=== PATIENT | male | born 1970 | race Caucasian/White ===

== ENCOUNTER → 2019-06-09 | Outpatient (REF) | payer BC ==
[2019-06-09 19:05] LABS: APPEARANCE, URINE CLEAR (CLEAR); BACTERIA, URINE AUTO NEGATIVE (NEGATIVE); BILIRUBIN, URINE AUTO NEGATIVE (NEGATIVE); BLOOD, URINE BLOOD NEGATIVE (NEGATIVE); COLOR, URINE YELLOW (YELLOW); GLUCOSE, URINE (UA) AUTO NEGATIVE (NEGATIVE); KETONE, URINE AUTO NEGATIVE (NEGATIVE); LEUKOCYTE ESTERASE, URINE AUTO NEGATIVE (NEGATIVE); NITRITE, URINE AUTO NEGATIVE (NEGATIVE); PROTEIN, URINE AUTO NEGATIVE (NEGATIVE); RBC, URINE AUTO 0 /HPF (0-3); SPECIFIC GRAVITY URINE AUTO 1.012 (1.002-1.035); SQUAMOUS EPITHELIAL CELL UR AU 0 /HPF (0-6); UROBILINOGEN, URINE AUTO 0.2 mg/dL (0.0-2.0); WBC, URINE AUTO 1 /HPF (0-3)
== END ==
LOC: M SMT 17:09
PROVIDERS: ATTEND Nurse Practitioner Family
DX: N40.1 Benign prostatic hyperplasia with lower urinary tract symptoms (principal)

== ENCOUNTER 2020-11-07 06:04 | Day surgery (SDC) | payer BC ==
[~2020-11-07] VITALS: Ht 175.3 cm; Wt 103.9 kg
[~2020-11-07 06:04] MED LIST: ALBU8.5H; AMLO1TAB25 PO; ATOR40TA75 PO; ECOT81TA5 PO; HYDR-3490 PO; LIDOCAINE 1% MDV 20ML VIAL SQ PRN; LISI30TA4 PO; OMEP-221 PO; SYMB16INH; TREL1AER
[2020-11-07] MEDS ORDERED: LR 1,000 ML IV ONE (06:10)
[2020-11-07] MEDS ORDERED: LIDOCAINE 4% INJ 5ML AMP INH ONE (06:10)
[2020-11-07] MEDS ORDERED: ALBUTEROL SULFATE 2.5 MG/0.5 ML INH NEB SOLN INH ONE (06:10)
[2020-11-07] MEDS ORDERED: MIDAZOLAM INJ 2MG/2ML VIAL (J2250 PER 1MG) As Ordered ONE (06:42)
[2020-11-07] MEDS ORDERED: propofoL 500 MG/50 ML VIAL As Ordered ONE (06:43)
[2020-11-07] MEDS ORDERED: LIDOCAINE 2% 100MG/5ML SDV (FOR ANES.) As Ordered ONE (06:44)
[2020-11-07] MEDS ORDERED: ROCURONIUM BROMIDE 50 MG/5 ML VIAL As Ordered ONE (06:44)
[2020-11-07] MEDS ORDERED: dexameTHASONE 4 MG/ML 1ML VIAL (J1100 PER 1MG) As Ordered ONE (06:54)
[2020-11-07] MEDS ORDERED: fentaNYL 100 MCG/2 ML INJECTION (J3010) As Ordered ONE (06:54)
[2020-11-07] MEDS ORDERED: ONDANSETRON 4MG/2ML VIAL As Ordered ONE (06:54)
[2020-11-07] MEDS ORDERED: propofoL 200 MG/20 ML VIAL As Ordered ONE ×2 (06:55→09:40)
[2020-11-07] MEDS ORDERED: SUGAMMADEX SODIUM 500 MG/5 ML VIAL (BRIDION) As Ordered ONE (07:06)
[2020-11-07] MEDS ORDERED: EPINEPHrine 1MG/10ML SYRINGE 1.5IN As Ordered ONE (07:11)
[2020-11-07] MEDS ORDERED: THROMBIN SOLN 5,000 UNITS VIAL As Ordered ONE (07:11)
[2020-11-07] MEDS ORDERED: CETACAINE SPRAY 5GM As Ordered ONE (07:11)
[2020-11-07] MEDS ORDERED: LIDOCAINE VISCOUS 2% SOLN 15ML UDC As Ordered ONE (07:11)
[2020-11-07] MEDS ORDERED: LIDOCAINE 1% MDV 20ML VIAL As Ordered ONE (07:11)
--- NOTE | 2020-11-07 08:49 | REP ---
INDICATION: POST OP IN PACU/BRONCHOSCOPY COMPARISON: None. TECHNIQUE: Portable AP view of the chest FINDINGS: Visualized mediastinum and cardiac silhouette are within normal limits. Left lower lobe opacity with blunting to the costophrenic angle suggests airspace disease and small pleural effusion. Correlation is recommended as no prior examinations are available for comparison. No pneumothorax. IMPRESSION: Opacity at the left base with blunting to the costophrenic angle may represent area of atelectasis and small pleural effusion. No prior examinations are available for comparison. <Electronically signed by Severino Mason > 11/07/20 [id number]
[2020-11-07] MEDS ORDERED: fentaNYL 100 MCG/2 ML INJECTION (J3010) IV PRN (09:05)
[2020-11-07] MEDS ORDERED: LR 1,000 ML IV SCH (09:05)
[2020-11-07] MEDS ORDERED: ONDANSETRON 4MG/2ML VIAL IV PRN (09:05)
[2020-11-07] MEDS ORDERED: oxyCODONE 5MG TAB PO PRN (09:05)
--- NOTE | 2020-11-07 09:10 | RO ---
OPERATIVE NOTE DATE OF OPERATION: 11/07/2020 PREOPERATIVE DIAGNOSES: 1. Abnormal chest CT. 2. Mediastinal lymphadenopathy. POSTOPERATIVE DIAGNOSES: 1. Abnormal chest CT. 2. Mediastinal lymphadenopathy. FINDINGS: Mucous in airway, smoker's airway. PROCEDURE: Bronchoscopy with endobronchial ultrasound. PROCEDURALIST: Job Conley D.O. CARDIAC SURGEON: None. ANESTHESIA: General. ESTIMATED BLOOD LOSS: Less than 5 mL. SPECIMENS OBTAINED: 1. Bronchoalveolar lavage (BAL) right middle lobe. 2. Fine needle aspiration left pretracheal mass. COMPLICATIONS: None observed. DESCRIPTION OF PROCEDURE: The patient was brought back to the OR after informed consent was reviewed. Anesthesia performed intubation and the case was handed over to me. A time-out was then performed with two patient identifiers, identify correct site and correct procedure and correlating name and date of with imaging. Cetacaine spray was then used to anesthetize the airway and provide lubrication for the 1T190 bronchoscope, which was then inserted into the trachea. The trachea was fairly midline and raul was splayed. There were minimal amounts of thick purulent mucous, opaque, mostly in the left lower lobe with some on the right. All airways were suctioned, and I then performed a BAL of the right middle lobe. After all suctioning was performed, I inspected the airways. The right mainstem bronchus was normal. The right upper lobe had anatomic variation with two apical segments and two lower segments, one anterior, and one posterior. RB5 through 10 was normal. The takeoff of the left upper lobe was [place], but no endobronchial lesions in LB1 through 3. LB4 and 5 were patent. The remainder of the lower lobe segments 6 through 10 were without endobronchial lesion. Left main bronchus was normal except for some minimal amounts of mucous. After airway exam, the 1T190 bronchoscope was removed and the endobronchial linear scope was then inserted. I viewed the subcarinal area, which was not as remarkable as the left pretracheal. Left pretracheal area was then biopsied multiple times. No suspicion of lymphoproliferation to send for flow cytometry; therefore, did not provide a sample for RPMI, but did obtain adequate sampling for cell block for pathology. After adequate sampling was obtained, the bronchoscope was removed. There was some amount of blood in the airway and this was all suctioned. There were no signs of hemorrhage. Hemostasis assured. Bronchoscope was removed. No observed complications. Postprocedure chest x-ray is pending.
[2020-11-07 09:40] VITALS: BP 124/77
== END 2020-11-07 10:07 | disposition home or self-care (01) ==
LOC: M SDC 06:04
PROVIDERS: ATTEND Internal Medicine Pulmonary Disease
DX: R59.0 Localized enlarged lymph nodes (principal); R91.8 Other nonspecific abnormal finding of lung field; B95.4 Other streptococcus as the cause of diseases classified elsewhere; I10 Essential (primary) hypertension; E78.5 Hyperlipidemia, unspecified; K21.9 Gastro-esophageal reflux disease without esophagitis; K76.0 Fatty (change of) liver, not elsewhere classified; J44.9 Chronic obstructive pulmonary disease, unspecified; Z87.891 Personal history of nicotine dependence; Z79.899 Other long term (current) drug therapy
CPT/HCPCS: 31624; 31627; 31629; 71045; 87070; 87077; 87102; 87116; 87186; 87205; 87206; 88173; 88305; J1100; J2250; J2405; J3010

== ENCOUNTER → 2020-11-14 | Outpatient (REF) | payer BC ==
[~2020-11-14] MED LIST changes: -LIDOCAINE 1% MDV 20ML VIAL SQ PRN
[2020-11-14 17:47] LABS: BLOOD UREA NITROGEN 15 MG/DL (7-18); CREATININE FOR GFR 0.69 MG/DL (0.70-1.30); GLOMERULAR FILTRATION RATE > 60.0 (>56)
== END ==
LOC: M PLALAB 16:55 → M LAB REF 16:55
PROVIDERS: ATTEND Internal Medicine Pulmonary Disease
DX: R59.0 Localized enlarged lymph nodes (principal)

== ENCOUNTER → 2020-11-16 | Outpatient (CLI) | payer BC ==
[~2020-11-16] MED LIST changes: +ISOVUE-370 76% 100ML VIAL As Ordered ONE
--- NOTE | 2020-11-16 16:20 | REP ---
INDICATION: LOCALIZED ENLARGED LYMPH NODES COMPARISON: 10/03/2020 a contrast-enhanced examination from an outside institution and 08/17/2020 a noncontrast enhanced examination from the same outside institution. TECHNIQUE: Standard helical technique after the intravenous administration of 100 cc Isovue 370. FINDINGS: There is a 5.1 x 5 x 3.8 cm sized mixed enhancing mass in the aortic pulmonary window. The overall size of this mass has not changed significantly compared to the latest prior contrast-enhanced exam. There is no hilar adenopathy. There is left axillary adenopathy which is also unchanged. The imaged upper abdomen is unchanged. The imaged osseous structures are again seen to be within normal limits. Evaluation of the lung bishop shows a 6 mm size nodule in the right lower lobe. There is an additional 6 mm size nodule more inferior to that. There is a 5 mm size nodule in the superior right middle lobe. There is a curvilinear density in the inferior lingula likely representing subsegmental atelectatic change. All aforementioned parenchymal findings are unchanged from the 10/03/2020 exam. Tiny left apical pleural blebs are noted. IMPRESSION: 1. There is a large mediastinal mass as described above. This is consistent with neoplasm. 2. There is left axillary adenopathy. 3. Multiple pulmonary nodules as described above. According to the revised Fleischner society criteria a three-month follow-up CT of the chest is recommended for those nodules. 4. Other findings as described above. <Electronically signed by Darron Garcia > 11/16/20 [id number]
== END ==
LOC: M RAD 12:35
PROVIDERS: ATTEND Internal Medicine Pulmonary Disease
DX: J98.59 Other diseases of mediastinum, not elsewhere classified (principal); R59.0 Localized enlarged lymph nodes; R91.8 Other nonspecific abnormal finding of lung field
CPT/HCPCS: 71260; Q9967

== ENCOUNTER → 2020-12-14 | Outpatient (CLI) | payer BC ==
[~2020-12-14] MED LIST changes: -ISOVUE-370 76% 100ML VIAL As Ordered ONE
[2020-12-14 14:10] LABS: ABG BASE EXCESS 0.8 (-2.0-2.0); ABG HCO3 24.5 MEQ/L (22.0-26.0); ABG O2 SATURATION 95.5 % (95.0-99.0); ABG PARTIAL PRESSURE CO2 36.7 mmHg (35.0-45.0); ABG PARTIAL PRESSURE O2 78.6 mmHg (75.0-100.0); ABG STANDARD HCO3 25.1 MEQ/L (22.0-26.0); ABG TOTAL CO2 25.7 MEQ/L (22.0-29.0); ABG pH (ARTERIAL) 7.443 UNITS (7.350-7.450)
[2020-12-14 14:26] LABS: INR 0.91; PROTHROMBIN TIME 12.4 SECONDS (12.5-14.3)
[2020-12-14 14:27] LABS: HEMATOCRIT 43.8 % (42.0-52.0); HEMOGLOBIN 14.9 g/dl (13.5-17.5); MEAN CORPUSCULAR VOLUME 88.3 fl (80.0-96.0); PLATELET COUNT, AUTOMATED 272 10^3/uL (150-450); RED BLOOD COUNT 4.96 10^6/uL (4.30-6.10); WHITE BLOOD COUNT 7.2 10^3/uL (4.0-10.0)
[2020-12-14 14:31] LABS: BLOOD UREA NITROGEN 12 MG/DL (7-18); CALCIUM LEVEL 9.4 MG/DL (8.5-10.1); CARBON DIOXIDE LEVEL 30 MEQ/L (21-32); CHLORIDE LEVEL 104 MEQ/L (98-107); CREATININE FOR GFR 0.69 MG/DL (0.70-1.30); GLOMERULAR FILTRATION RATE > 60.0 (>56); GLUCOSE, FASTING 102 MG/DL (70-100); POTASSIUM SERUM 3.4 MEQ/L (3.5-5.1); SODIUM LEVEL 138 MEQ/L (136-145)
[2020-12-14 14:51] LABS: APPEARANCE, URINE CLEAR (CLEAR); BACTERIA, URINE AUTO NEGATIVE (NEGATIVE); BILIRUBIN, URINE AUTO NEGATIVE (NEGATIVE); BLOOD, URINE BLOOD NEGATIVE (NEGATIVE); COLOR, URINE STRAW (YELLOW); GLUCOSE, URINE (UA) AUTO NEGATIVE (NEGATIVE); KETONE, URINE AUTO NEGATIVE (NEGATIVE); LEUKOCYTE ESTERASE, URINE AUTO NEGATIVE (NEGATIVE); NITRITE, URINE AUTO NEGATIVE (NEGATIVE); PROTEIN, URINE AUTO NEGATIVE (NEGATIVE); RBC, URINE AUTO 0 /HPF (0-3); SPECIFIC GRAVITY URINE AUTO 1.005 (1.002-1.035); SQUAMOUS EPITHELIAL CELL UR AU 0 /HPF (0-6); UROBILINOGEN, URINE AUTO 0.2 mg/dL (0.0-2.0); WBC, URINE AUTO 0 /HPF (0-3)
--- NOTE | 2020-12-14 15:35 | REP ---
INDICATION: PRE OP. COMPARISON: 11/07/2020 a portable exam TECHNIQUE: Two views FINDINGS: Cardiomediastinal silhouette is within normal limits. The heart is not enlarged. The left lung is improved, however, a few curvilinear left basilar densities persist. The right lung is clear and unchanged. The CP angles are sharp. There is no change in the osseous structures. IMPRESSION: No evidence of acute cardiopulmonary disease. Improved left lung base as described above. Follow-up to complete resolution should be considered. <Electronically signed by Darron Garcia > 12/14/20 [id number]
--- NOTE | 2020-12-16 16:06 | ECGEPIP ---
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
== END ==
LOC: M ADMPAT 13:25
PROVIDERS: ATTEND Thoracic Surgery (Cardiothoracic Vascular Surgery)
DX: Z01.818 Encounter for other preprocedural examination (principal); R22.2 Localized swelling, mass and lump, trunk

== ENCOUNTER 2020-12-17 10:44 | Day surgery (SDC) | payer BC ==
[~2020-12-17] VITALS: Ht 175.3 cm; Wt 104.3 kg
[~2020-12-17 10:44] MED LIST changes: +LIDOCAINE 1% MDV 20ML VIAL SQ PRN; +LR 1,000 ML IV ONE; +MUPIROCIN 2% OINT 22 GM TUBE TOP ONE; +ceFAZolin SOD 2 GM in IV 1 EA IV ONE
[2020-12-17] MEDS ORDERED: ROCURONIUM BROMIDE 50 MG/5 ML VIAL As Ordered ONE ×2 (12:20→14:07)
[2020-12-17] MEDS ORDERED: LIDOCAINE 2% 100MG/5ML SDV (FOR ANES.) As Ordered ONE ×2 (12:20→16:01)
[2020-12-17] MEDS ORDERED: fentaNYL 100 MCG/2 ML INJECTION (J3010) As Ordered ONE ×2 (12:20→14:36)
[2020-12-17] MEDS ORDERED: MIDAZOLAM INJ 2MG/2ML VIAL (J2250 PER 1MG) As Ordered ONE (12:20)
[2020-12-17] MEDS ORDERED: propofoL 200 MG/20 ML VIAL As Ordered ONE ×2 (12:20→16:00)
[2020-12-17] MEDS ORDERED: CETACAINE SPRAY 5GM As Ordered ONE (13:20)
[2020-12-17] MEDS ORDERED: EPINEPHrine 1MG/10ML SYRINGE 1.5IN As Ordered ONE (13:20)
[2020-12-17] MEDS ORDERED: BUPIVACAINE LIPOSOME/PF 1.3% 20ML VIAL (13.3MG/ML)(EXPAREL)(C9290 PER1MG) As Ordered ONE (13:21)
[2020-12-17] MEDS ORDERED: THROMBIN SOLN 20,000 UNITS KIT As Ordered ONE (13:42)
[2020-12-17] MEDS ORDERED: dexameTHASONE 4 MG/ML 1ML VIAL (J1100 PER 1MG) As Ordered ONE (13:58)
[2020-12-17] MEDS ORDERED: ONDANSETRON 4MG/2ML VIAL As Ordered ONE (14:11)
[2020-12-17] MEDS ORDERED: ACETAMINOPHEN 1000MG 100ML IV BTL (OFIRMEV) (J0131 PER 10MG) As Ordered ONE (14:14)
[2020-12-17] MEDS ORDERED: KETOROLAC 30 MG/ML 1ML VIAL As Ordered ONE (16:40)
[2020-12-17] MEDS ORDERED: fentaNYL 100 MCG/2 ML INJECTION (J3010) IV PRN (16:50)
[2020-12-17] MEDS ORDERED: METOCLOPRAMIDE INJ 10MG/2ML VIAL (J2765 PER 1) IV PRN (16:50)
[2020-12-17] MEDS ORDERED: ONDANSETRON 4MG/2ML VIAL IV PRN (16:50)
[2020-12-17] MEDS ORDERED: LR 1,000 ML IV SCH (16:50)
[2020-12-17] MEDS ORDERED: PERCOCET 5MG/325MG TAB PO PRN ×2 (16:50)
[2020-12-17] MEDS ORDERED: KETOROLAC 30 MG/ML 1ML VIAL IV ONE (16:55)
--- NOTE | 2020-12-17 17:02 | REP ---
INDICATION: POST OP IN PACU/ BRONCHOSCOPY. COMPARISON: 12/14/2020 TECHNIQUE: Portable FINDINGS: The technique utilized in obtaining the radiograph has magnified the cardiac silhouette and attenuated the interstitial markings. The cardiomediastinal silhouette is essentially unchanged when the technical differences between the examinations are taken into consideration. There is a new asymmetric density in the left lower lobe. The lung bishop are hypoexpanded accentuating the finding. New curvilinear densities and slight right CP angle blunting is also noted. This represents a change. IMPRESSION: Likely bilateral lower lobe subsegmental atelectatic changes. Follow-up is suggested. <Electronically signed by Darron Garcia > 12/17/20 [id number]
[2020-12-17 18:25] VITALS: BP 124/72
--- NOTE | 2020-12-18 08:38 | RO ---
OPERATIVE NOTE DATE OF OPERATION: 12/17/2020 PREOPERATIVE DIAGNOSIS: Mediastinal lymphadenopathy/mass. POSTOPERATIVE DIAGNOSIS: Mediastinal lymphadenopathy/mass; metastatic carcinoma, unknown cell type at this point. PROCEDURE: Mediastinoscopy, bronchoscopy. SURGEON: Luis Ponce MD DOOR ASSEMBLER: ANESTHESIA: FINDINGS: The bronchoscopy revealed normal branching tracheobronchial tree. There was no extrinsic compression of the trachea and there were no endobronchial lesions. The mediastinoscopy reveals a mass, which is actually rather difficult to find as it was surrounded in fat. It was quite vascular and bled with every bite. Frozen section showed this could be a highly vascular metastatic adenocarcinoma. DESCRIPTION OF PROCEDURE: Under satisfactory general anesthesia and single-lumen tube endotracheal intubation, the bronchoscope was passed in the tracheobronchial tree. Each sub-segment and segment were thoroughly inspected and there were no endobronchial lesions. There was no extrinsic compression of the left or right main stem bronchi or the trachea. The patient was then prepped and draped in the usual sterile fashion, and a standard suprasternal notch incision was made. Incision was carried down through subcutaneous tissue and the strap muscles divided in the midline. Pretracheal fascia was entered. I could not feel the mass with my dissecting finger even all the way up to its hilt. The mediastinoscope was placed, and there in proceeded a long exploration to actually find the mass. I thought the mass was going to be quite evident but it was covered in fat. Upon aspirating the mass, there were areas where it was quite vascular thus confusing me with regard to its proximity to the great vessels. The CT scan did not show any proximity to any great vessels. I eventually started biopsying the mass and sent for frozen section which showed metastatic carcinoma tissue which was really quite vascular with large nests of vessels. This gave me a little more confidence to go back and biopsy the mass more extensively. There was one portion of the mass which bled quite vigorously in a steady stream and I eventually cauterized these by use of the biopsy forceps being used as a conduit for electrical cautery current. After achieving adequate hemostasis and packing the wound with Gelfoam and thrombin, the strap muscles were closed with running 3-0 Vicryl suture, subcutaneous tissue by use of the same, and the skin by using 4-0 Monocryl subcuticular suture. The patient tolerated the procedure well and left the operating room in the satisfactory condition to the recovery room. MTDD
== END 2020-12-17 18:25 | disposition home or self-care (01) ==
LOC: M SDC 10:44
PROVIDERS: ATTEND Thoracic Surgery (Cardiothoracic Vascular Surgery)
DX: D44.7 Neoplasm of uncertain behavior of aortic body and other paraganglia (principal); R59.9 Enlarged lymph nodes, unspecified; I10 Essential (primary) hypertension; E78.5 Hyperlipidemia, unspecified; K21.9 Gastro-esophageal reflux disease without esophagitis; G47.33 Obstructive sleep apnea (adult) (pediatric); Z79.899 Other long term (current) drug therapy; Z79.51 Long term (current) use of inhaled steroids; J43.1 Panlobular emphysema
CPT/HCPCS: 31622; 36415; 39401; 71045; 86850; 86900; 86901; 88305; 88341; 88342; C9290; J0131; J0690; J1100; J1885; J2250; J2405; J3010

== ENCOUNTER → 2020-12-24 | Outpatient (REF) | payer BC ==
[~2020-12-24] MED LIST changes: -LIDOCAINE 1% MDV 20ML VIAL SQ PRN; -LR 1,000 ML IV ONE; -MUPIROCIN 2% OINT 22 GM TUBE TOP ONE; -ceFAZolin SOD 2 GM in IV 1 EA IV ONE
[2020-12-24 18:03] LABS: APPEARANCE, URINE CLEAR (CLEAR); BACTERIA, URINE AUTO NEGATIVE (NEGATIVE); BILIRUBIN, URINE AUTO NEGATIVE (NEGATIVE); BLOOD, URINE BLOOD NEGATIVE (NEGATIVE); COLOR, URINE STRAW (YELLOW); GLUCOSE, URINE (UA) AUTO NEGATIVE (NEGATIVE); KETONE, URINE AUTO NEGATIVE (NEGATIVE); LEUKOCYTE ESTERASE, URINE AUTO NEGATIVE (NEGATIVE); NITRITE, URINE AUTO NEGATIVE (NEGATIVE); PROTEIN, URINE AUTO NEGATIVE (NEGATIVE); RBC, URINE AUTO 0 /HPF (0-3); SPECIFIC GRAVITY URINE AUTO 1.003 (1.002-1.035); SQUAMOUS EPITHELIAL CELL UR AU 0 /HPF (0-6); UROBILINOGEN, URINE AUTO 0.2 mg/dL (0.0-2.0); WBC, URINE AUTO 0 /HPF (0-3)
== END ==
LOC: M SMT 17:01
PROVIDERS: ATTEND Nurse Practitioner Family
DX: N50.819 Testicular pain, unspecified (principal)

== ENCOUNTER → 2022-03-21 | Outpatient (CLI) | payer OTHER ==
[~2022-03-21] MED LIST changes: -OMEP-221 PO; +OMEP40CA5 PO
== END ==
LOC: M PLALAB 11:16
PROVIDERS: ATTEND Physician Assistant
DX: I50.20 Unspecified systolic (congestive) heart failure (principal)

== ENCOUNTER → 2022-04-29 | Outpatient (REF) | payer OTHER ==
[2022-04-29 13:39] LABS: APPEARANCE, URINE MANUAL CLEAR (CLEAR); COLOR, URINE MANUAL YELLOW (YELLOW); PROTEIN, URINE MANUAL NEGATIVE (NEGATIVE)
[2022-04-29 13:40] LABS: BILIRUBIN, URINE MANUAL NEGATIVE (NEGATIVE); BLOOD URINE MANUAL NEGATIVE (NEGATIVE); GLUCOSE, URINE (UA) MANUAL 4+(1000 MG/DL) mg/dL (NEGATIVE); KETONE, URINE MANUAL NEGATIVE (NEGATIVE); LEUKOCYTE ESTERASE, URINE MAN NEGATIVE (NEGATIVE); NITRITE, URINE MANUAL NEGATIVE (NEGATIVE); UROBILINOGEN, URINE MANUAL NORMAL (NORMAL)
== END ==
LOC: M SMT 12:57
PROVIDERS: ATTEND Physician Assistant
DX: N40.1 Benign prostatic hyperplasia with lower urinary tract symptoms (principal)

== ENCOUNTER → 2023-04-17 | Outpatient (CLI) | payer MEDICARE, OTHER | LOC: M PLAIMG 08:52 | PROVIDERS: ATTEND Internal Medicine Pulmonary Disease | DX: J98.6 Disorders of diaphragm (principal) ==

== ENCOUNTER → 2023-04-17 | Outpatient (CLI) | payer MEDICARE, OTHER | LOC: M PLALAB 08:54 | PROVIDERS: ATTEND Physician Assistant | DX: I48.0 Paroxysmal atrial fibrillation (principal) ==

== ENCOUNTER 2023-12-07 10:33 | Day surgery (SDC) | payer MEDICAID, MEDICARE, OTHER ==
[~2023-12-07] VITALS: Ht 175.3 cm; Wt 106.3 kg
[~2023-12-07 10:33] MED LIST changes: +ATOR80TA59 PO; +CYCL5TAB PO; +DULC100C2 PO; +DULO1CAP6 PO; +ELIQ5TAB PO; +FINA5TAB2 PO; +FLUT1BLS8; +FURO40TA2 PO; +JARD1TAB PO; +LEVO75TA4 PO; +LISI5TAB11 PO; +METO75TA PO; +POTA10CA70 PO; +TAMS1CAP17 PO; +TRAM50TA2 PO; +VITA100093 PO; +[UNRECOGNIZED DRUG - CODE] IM
[2023-12-07] MEDS ORDERED: LIDOCAINE 2% 100MG/5ML SDV (FOR ANES.) As Ordered ONE (11:49)
[2023-12-07] MEDS ORDERED: propofoL 200 MG/20 ML VIAL As Ordered ONE (11:49)
[2023-12-07] MEDS: LR 1,000 ML IV SCH (11:57)
[2023-12-07] MEDS ORDERED: MIDAZOLAM INJ 2MG/2ML VIAL As Ordered ONE (12:15)
[2023-12-07] MEDS ORDERED: fentaNYL 100 MCG/2 ML INJECTION As Ordered ONE (12:15)
[2023-12-07] MEDS: ceFAZolin SOD 2 GM in IV 1 EA IV ONE (12:46)
[2023-12-07] MEDS ORDERED: ACETAMINOPHEN 1000MG 100ML IV BAG As Ordered ONE (12:53)
[2023-12-07] MEDS ORDERED: ONDANSETRON 4MG 2ML VIAL As Ordered ONE (13:25)
[2023-12-07] MEDS: LIDOCAINE 2% MDV 20ML VIAL As Ordered ONE (13:25)
[2023-12-07] MEDS ORDERED: KETOROLAC 60MG 2ML VIAL As Ordered ONE (13:25)
[2023-12-07] MEDS ORDERED: ONDANSETRON 4MG 2ML VIAL IV PRN (13:35)
[2023-12-07] MEDS ORDERED: LR 1,000 ML IV SCH (13:35)
[2023-12-07] MEDS ORDERED: HYDROMORPHONE HCL 0.5 MG/ 0.5 ML SYRINGE IV PRN (13:35)
[2023-12-07] MEDS ORDERED: fentaNYL 100 MCG/2 ML INJECTION IV PRN (13:35)
[2023-12-07] MEDS ORDERED: oxyCODONE 5MG TAB PO PRN (13:35)
[2023-12-07] MEDS ORDERED: HYDR-3713 PO (13:40)
[2023-12-07] MEDS ORDERED: CEPH500C PO (13:40)
[2023-12-07 14:25] VITALS: BP 144/81; TEMP 97.7; O2SAT 95
== END 2023-12-07 15:03 | disposition home or self-care (01) ==
LOC: M SDC 10:33
PROVIDERS: ATTEND Urology
DX: Q55.22 Retractile testis (principal); I48.91 Unspecified atrial fibrillation; I10 Essential (primary) hypertension; E78.5 Hyperlipidemia, unspecified; E03.9 Hypothyroidism, unspecified; K76.0 Fatty (change of) liver, not elsewhere classified; R21 Rash and other nonspecific skin eruption; G47.30 Sleep apnea, unspecified; Z79.51 Long term (current) use of inhaled steroids; J44.9 Chronic obstructive pulmonary disease, unspecified; Z87.891 Personal history of nicotine dependence; Z79.01 Long term (current) use of anticoagulants; K21.9 Gastro-esophageal reflux disease without esophagitis; Z79.899 Other long term (current) drug therapy; N40.0 Benign prostatic hyperplasia without lower urinary tract symptoms
CPT/HCPCS: 54600; J0131; J0665; J0690; J1100; J1885; J2250; J2405; J3010